=== PATIENT | female | born 1970 | race Caucasian/White ===

== ENCOUNTER → 2017-01-22 | Day surgery (SDC) | payer BC ==
[~2017-01-22] MED LIST: OMEPRAZOLE20 M2 PO; TRAMADOL HCL50 M1 PO
--- NOTE | ~2017-01-22 | OR ---
Unit #: [id number] #: [id number] Patient: PAUL ROCHA [id number] [address] [place], [place] [address] [id number] O MR#: [id number] NAME: PAUL ROCHA ROOM: Date of Procedure: 01/22/2017 Admission Date: 01/22/2017 Surgeon: Milo Trammell M.D. : 1970 Attending Physician: Milo Trammell M.D. OPERATIVE REPORT PREOPERATIVE DIAGNOSES Back pain, radiculopathy, herniated nucleus pulposus. POSTOPERATIVE DIAGNOSES Back pain, radiculopathy, herniated nucleus pulposus. PROCEDURE PERFORMED Lumbar epidural steroid injection with intravenous sedation and fluoroscopic guidance for needle localization. INDICATIONS FOR PROCEDURE The patient is a 46-year-old female with worsening back and left greater than right lower extremity pain. She failed to settle with conservative treatment. Workup demonstrated L5-S1 left-sided bulge with annular tear contacting the left L5 nerve root. Physical examination is consistent with radiculitis as the etiology of her pain. She has failed rehab medications and other conservative measures. Plan is for trial of epidural steroids based on response. DESCRIPTION OF PROCEDURE The patient was placed in a seated position. Standard monitors were applied. 2 mg of Versed were given for sedation and anxiolysis, which were adequate. Vital signs remained stable. Sterile prep and drape then of the lumbar area was performed. The skin then at the L5 level was localized with 1% lidocaine. An 18-gauge Hustead needle was then advanced via loss of resistance technique and fluoroscopic guidance in toward the epidural space. The patient did not complain of any pain or paresthesia during needle advancement. After confirming proper positioning with fluoroscopy and radiographic contrast, 80 mg of Depo-Medrol and 4 mL of 0.125% bupivacaine were deposited. The patient tolerated the procedure otherwise well and was discharged to recovery room in stable condition. Dictated by... Marvin Casey/dale TD: 01/22/2017 22:18 JOB #: [id number] Unit #: [id number] #: [id number] Patient: PAUL ROCHA OPERATIVE REPORT Page 1 of 1 X Milo Trammell MD X PROCEDURE OPERATIVE NOTE
== END | disposition home or self-care (01) ==
LOC: CCSC 08:36
DX: M51.17 Intervertebral disc disorders with radiculopathy, lumbosacral region (principal); K21.9 Gastro-esophageal reflux disease without esophagitis
CPT/HCPCS: J1040; J2250

== ENCOUNTER → 2017-02-07 | Day surgery (SDC) | payer BC ==
--- NOTE | ~2017-02-07 | OR ---
Unit #: [id number] #: [id number] Patient: PAUL ROCHA [id number] [address] [place], [place] [address] [id number] O MR#: [id number] NAME: PAUL ROCHA ROOM: Date of Procedure: 02/07/2017 Admission Date: 02/07/2017 Surgeon: Milo Trammell M.D. : 1970 Attending Physician: Milo Trammell M.D. Primary Care Physician: Sergio Shearer M.D. OPERATIVE REPORT PREOPERATIVE DIAGNOSES Back pain, radiculopathy, herniated nucleus pulposus. POSTOPERATIVE DIAGNOSES Back pain, radiculopathy, herniated nucleus pulposus. PROCEDURE PERFORMED Lumbar epidural steroid injection with intravenous sedation and fluoroscopic guidance for needle localization. INDICATIONS FOR PROCEDURE The patient is a 46-year-old female with back and left lower extremity radicular pain. It is not settle with conservative treatment. Workup demonstrated left-sided disk bulge and annular tear contacting the left L5 nerve root. After only getting mild improvement with this conservative measures, the decision made to give a trial of epidural steroids. Initial injection 2 weeks ago resulted in at least 50% settling of her back and leg pain. She has had some evening cramps, but otherwise done well. Based on her good partial response, pathology, and symptomatology, we are going to proceed with a repeat epidural steroid injection today. DESCRIPTION OF PROCEDURE The patient was placed in the seated position. Standard monitors were applied. 2 mg of Versed were given for sedation and anxiolysis, which were adequate. Vital signs remained stable. Sterile prep and drape then of the lumbar area was performed. The skin then at the L5 level was localized with 1% lidocaine. An 18-gauge [employer] needle was then advanced via loss of resistance technique and fluoroscopic guidance in toward the epidural space. After confirming proper positioning with fluoroscopy and radiographic contrast, 80 mg Depo-Medrol and 4 mL of 0.125% bupivacaine were deposited. The patient tolerated the procedure otherwise well and was discharged to the recovery room in stable condition. Dictated by... Milo Trammell M.D. LHP/giol TD: 02/07/2017 22:50 JOB #: [id number] Unit #: [id number] #: [id number] Patient: PAUL ROCHA OPERATIVE REPORT Page 1 of 1 X Milo Trammell MD X PROCEDURE OPERATIVE NOTE
== END | disposition home or self-care (01) ==
LOC: CCSC 08:29
DX: M51.16 Intervertebral disc disorders with radiculopathy, lumbar region (principal); K21.9 Gastro-esophageal reflux disease without esophagitis; F41.9 Anxiety disorder, unspecified
CPT/HCPCS: J1040; J2250

== ENCOUNTER → 2017-02-19 | Day surgery (SDC) | payer BC ==
--- NOTE | ~2017-02-19 | OR ---
Unit #: [id number] #: [id number] Patient: PAUL ROCHA [id number] [facility]. [place], [place] [address] [id number] O MR#: [id number] NAME: PAUL ROCHA ROOM: Date of Procedure: 02/19/2017 Admission Date: 02/19/2017 Surgeon: Milo Trammell M.D. : 1970 Attending Physician: Milo Trammell M.D. Primary Care Physician: Generic Doctor Not In System OPERATIVE REPORT PREOPERATIVE DIAGNOSES Back pain, radiculopathy, herniated nucleus pulposus. POSTOPERATIVE DIAGNOSES Back pain, radiculopathy, herniated nucleus pulposus. PROCEDURE PERFORMED Lumbar epidural steroid injection with intravenous sedation and fluoroscopic guidance for needle localization. INDICATIONS FOR PROCEDURE The patient is a 46-year-old female, who presented with left lower extremity pain felt to be due to L5-S1 disk herniation with annular tear contacting the left L5 nerve root. The patient did not settle with conservative measures, so decision made to give a trial of epidural steroids. Two were done to this point over the last month or so. They have given additive significant improvement in her symptom complex. She is not yet down to the prior baseline. We are going to proceed with what should be a final injection at this point. With the pathology, she may require injection in the future. Single injection on p.r.n. basis certainly be reasonable if needed down the line. This has been discussed with the patient. DESCRIPTION OF PROCEDURE The patient was placed in a seated position. Standard monitors were applied. 2 mg of Versed were given for sedation and anxiolysis, which were adequate. Vital signs remained stable. Sterile prep and drape then of the lumbar area was performed. The skin at the L4-L5 level was localized with 1% lidocaine. An 18-gauge [employer] needle was then advanced via loss of resistance technique and fluoroscopic guidance to confirm proper positioning. In this manner, a dose of 80 mg Depo-Medrol and 4 mL of 0.5% lidocaine were deposited. The patient tolerated the procedure otherwise well and was discharged to recovery room in stable condition. Dictated by... Marvin Casey/dale Unit #: [id number] #: [id number] Patient: PAUL ROCHA TD: 02/19/2017 23:25 JOB #: [id number] OPERATIVE REPORT Page 1 of 1 X Milo Trammell MD X PROCEDURE OPERATIVE NOTE
== END | disposition home or self-care (01) ==
LOC: CCSC 08:39
DX: M51.17 Intervertebral disc disorders with radiculopathy, lumbosacral region (principal); K21.9 Gastro-esophageal reflux disease without esophagitis
CPT/HCPCS: J1040; J2250

== ENCOUNTER → 2017-02-26 | Day surgery (SDC) | payer BC ==
--- NOTE | ~2017-02-26 | OR ---
Unit #: [id number] #: [id number] Patient: PAUL ROCHA [id number] [facility]. [place], [place] [address] [id number] O MR#: [id number] NAME: PAUL ROCHA ROOM: Date of Procedure: 02/26/2017 Admission Date: 02/26/2017 Surgeon: Milo Trammell M.D. : 1970 Attending Physician: Milo Trammell M.D. Primary Care Physician: Sergio Shearer M.D. OPERATIVE REPORT PREOPERATIVE DIAGNOSIS Postdural puncture headache. POSTOPERATIVE DIAGNOSIS Postdural puncture headache, status post blood patch. PROCEDURE PERFORMED Epidural blood patch with intravenous sedation and fluoroscopic guidance for needle localization. INDICATIONS FOR PROCEDURE The patient is a 46-year-old female, who complained of symptoms consistent with postdural puncture headache following epidural steroid injection done a week ago. Pain came on several hours after the headache, it was positional, notes it was much worse when she stands or walks. She has had some nausea and double vision. She has failed to respond to bedrest and caffeine. Based on her symptomatology and history, plan is to do a blood patch. Risks and benefits of all have been reviewed. DESCRIPTION OF PROCEDURE The patient was placed in a seated position. Standard monitors were applied. 2 mg of Versed were given for sedation and anxiolysis, which were adequate. Vital signs remained stable. Sterile prep and drape then of the lumbar area was performed. The skin then at the L5 level was localized with 1% lidocaine. An 18-gauge Hust[employer] needle was then advanced via loss of resistance technique and fluoroscopic guidance in toward the epidural space. The patient did not complain of pain or paresthesia during needle advancement. After confirming proper positioning with fluoroscopy and radiographic contrast, the left hand was then sterilely prepped and draped. 20 mL of autologous blood were taken with aseptic precautions. This was done without complication. This 20 mL blood was then injected via the epidural needle without complaint or discomfort. The patient tolerated the entire procedure otherwise well. She noted her headache was resolved almost immediately upon injecting the blood. She was discharged to the recovery room in stable condition. Dictated by... Milo Trammell M.D. LHP/dale Unit #: [id number] #: [id number] Patient: PAUL ROCHA TD: 02/27/2017 01:18 JOB #: [id number] OPERATIVE REPORT Page 1 of 1 X Milo Trammell MD X PROCEDURE OPERATIVE NOTE
== END | disposition home or self-care (01) ==
LOC: CCSC 06:44
DX: G97.1 Other reaction to spinal and lumbar puncture (principal); K21.9 Gastro-esophageal reflux disease without esophagitis; Z79.899 Other long term (current) drug therapy; Z98.890 Other specified postprocedural states
CPT/HCPCS: J1040; J2250